=== PATIENT | male | born 1935 | race Caucasian/White ===

== ENCOUNTER 2020-12-27 12:13 | Inpatient (IN) | payer OTHER ==
[2020-12-27 12:43] LABS: Absolute Lymphocytes (CBC) 3.9 K/uL (0.7-4.9); Basophils % 1.4 % (0-1.3); Hematocrit 42.8 % (39.6-49.0); Lymphocytes % 42.6 % (15.3-44.8); MPV 10.6 fL (7.6-11.3); RBC Red Blood Cell Count 4.46 M/uL (4.33-5.43)
[2020-12-27 12:47] LABS: Protime INR 1.1
[2020-12-27 12:50] LABS: Potassium 4.8 mmol/L (3.5-5.1)
--- NOTE | 2020-12-27 13:01 | RAD REPORT ---
EXAM DESCRIPTION: CT - Ct Stroke Brain Wo Cont - 12/27/2020 12:43 pm CLINICAL HISTORY: APHASIA Headache, drowsiness, CVA symptomology COMPARISON: No comparisons TECHNIQUE: All CT scans are performed using dose optimization technique as appropriate and may inclu de automated exposure control or mA/KV adjustment according to patient size. FINDINGS: No intracranial hemorrhage, hydrocephalus or extra-axial fluid collection.Mild generalized brain atrophy is present with mild periventricular and deep white matter chronic microvascular ische aditi changes.No areas of brain edema or evidence of midline shift. The paranasal sinuses and mastoids are clear. The calvarium is intact. IMPRESSION: No acute intracranial abnormality. The findings were discussed with Dr Perez in the ER on 12/27/2020 at 12:15 p.m. by telephone.
--- NOTE | 2020-12-27 13:25 | RAD REPORT ---
EXAM DESCRIPTION: RAD - Chest Single View - 12/27/2020 1:11 pm CLINICAL HISTORY: code stroke Chest pain. COMPARISON: No comparisons FINDINGS: Portable technique limits examination quality. Mild interstitial pulmonary edema seen. The heart is moderately enlarged in size. Sternotomy wires pr esent. IMPRESSION: Mild CHF.
--- NOTE | 2020-12-27 14:43 | EDPHYS ---
Physician Documentation [facility] Name: Timo Galvin Age: 85 yrs Sex: Male : 1935 Arrival Date: 12/27/2020 Time: 12:14 Bed 4 Private MD: ED Physician Rell Perez HPI: 12/27 14:30 This 85 yrs old Male presents to ER via EMS with complaints of S/S of tw4 Possible Stroke. 15:24 The patient presents with decreased mental status, decreased responsiveness. Onset: The tw4 symptoms/episode began/occurred just prior to arrival, today. Possible causes: unknown. Associated signs and symptoms: Pertinent positives: chest pain, Pertinent negatives: abdominal pain, agitation, ataxia, blurred vision, confusion, diaphoresis, diarrhea, dizziness, headache, lightheadedness. The patient has not experienced similar symptoms in the past. Historical: - Allergies: 12:44 "Mycin" drugs; ph - PMHx: 12:21 Hypertension; Myocardial infarction; ph - Immunization history:: Adult Immunizations unknown. - Social history:: Smoking status: Patient denies any tobacco usage or history of. ROS: 15:24 Constitutional: Negative for fever, chills, and weight loss, Eyes: Negative for injury, tw4 pain, redness, and discharge, Respiratory: Negative for shortness of breath, cough, wheezing, and pleuritic chest pain, Abdomen/GI: Negative for abdominal pain, nausea, vomiting, diarrhea, and constipation, Back: Negative for injury and pain, MS/Extremity: Negative for injury and deformity, Skin: Negative for injury, rash, and discoloration. 15:24 Cardiovascular: Positive for chest pain, Negative for edema, orthopnea, palpitations, paroxysmal nocturnal dyspnea. 15:24 Neuro: Positive for altered mental status, loss of consciousness, Negative for dizziness, gait disturbance, headache, hearing loss. Exam: 15:24 Constitutional: This is a well developed, well nourished patient who is awake, alert, tw4 and in no acute distress. Head/Face: Normocephalic, atraumatic. Chest/axilla: Normal chest wall appearance and motion. Nontender with no deformity. No lesions are appreciated. Cardiovascular: Regular rate and rhythm with a normal S1 and S2. No gallops, murmurs, or rubs. Normal PMI, no JVD. No pulse deficits. Respiratory: Lungs have equal breath sounds bilaterally, clear to auscultation and percussion. No rales, rhonchi or wheezes noted. No increased work of breathing, no retractions or nasal flaring. Abdomen/GI: Soft, non-tender, with normal bowel sounds. No distension or tympany. No guarding or rebound. No evidence of tenderness throughout. Back: No spinal tenderness. No costovertebral tenderness. Full range of motion. 15:24 Neuro: Orientation: unable to test, the patient is post-ictal, Mentation: able to follow commands, slow to respond, confused. Vital Signs: 12:00 BP 136 / 69; Pulse 71; Resp 18; Temp 97.4; Pulse Ox 98% on R/A; Pain 0/10; ph 13:29 BP 144 / 79; Pulse 72; Resp 18; Pulse Ox 98% on R/A; ph 15:16 BP 147 / 73; Pulse 68; Resp 18; Pulse Ox 98% on R/A; ph 16:00 BP 114 / 66; Pulse 66; Resp 16; Pulse Ox 96% on R/A; ph 17:00 BP 150 / 78; Pulse 68; Resp 18; Pulse Ox 97% on R/A; ph 18:00 BP 123 / 64; Pulse 71; Resp 18; Pulse Ox 97% on R/A; ph 19:30 BP 111 / 63; Pulse 77; Resp 18; Pulse Ox 96% on R/A; NIH Stroke Scale Scores: 12:00 NIHSS Score: 4 ph 12:23 NIHSS Score: 0 ph MDM: 12:16 Patient medically screened. tw4 15:34 Differential Diagnosis: CVA, hypoglycemia, intracranial bleed, overdose, TIA, UTI. Data tw4 reviewed: vital signs, nurses notes. Data reviewed: radiologic studies, CT scan. Data interpreted: Pulse oximetry: Interpretation: normal. Counseling: I had a detailed discussion with the patient and/or guardian regarding: the historical points, exam findings, and any diagnostic results supporting the discharge/admit diagnosis. 12/27 12:32 Order name: Glucose, Ancillary Testing; Complete Time: 14:27 EDMS 12/27 14:27 Interpretation: Within normal limits: GLUC,ANCIL 86. tw4 12/27 12:37 Order name: Basic Metabolic Panel ph 12/27 12:37 Order name: CBC with Diff ph 12/27 12:37 Order name: Protime (+inr) ph 12/27 12:37 Order name: Ptt, Activated ph 12/27 12:37 Order name: Basic Metabolic Panel; Complete Time: 14:27 EDMS 12/27 14:27 Interpretation: Normal except: CL 109; GFR 69. 4 12/27 12:37 Order name: CBC with Automated Diff; Complete Time: 14:27 EDMS 12/27 14:27 Interpretation: Within normal limits. 4 12/27 12:37 Order name: Protime (+INR); Complete Time: 14:27 EDMS 12/27 14:27 Interpretation: PT 12.7. 4 12/27 12:37 Order name: PTT, Activated Partial Thromb; Complete Time: 14:27 EDMS 12/27 15:16 Order name: Urine Dipstick--Ancillary (enter results) or 12/27 15:17 Order name: Urine Dipstick-Ancillary EDKY 12/27 15:59 Order name: Troponin (emerg Dept Use Only); Complete Time: 18:12 [facility] 12/27 16:45 Order name: SARS-COV-2 RT PCR EDKY 12/27 12:37 Order name: CT Stroke Brain w/o Contrast; Complete Time: 14:27 ph 12/27 12:37 Order name: Stroke CXR 1 View; Complete Time: 14:27 ph 12/27 12:37 Order name: EKG; Complete Time: 12:37 ph 12/27 12:37 Order name: Accucheck; Complete Time: 12:37 ph 12/27 12:37 Order name: Cardiac monitoring; Complete Time: 12:37 ph 12/27 12:37 Order name: EKG - Nurse/Tech; Complete Time: 12:38 ph 12/27 12:37 Order name: IV Saline Lock; Complete Time: 12:38 ph 12/27 12:37 Order name: Labs collected and sent; Complete Time: 12:38 ph 12/27 12:37 Order name: NPO; Complete Time: 12:38 ph 12/27 12:37 Order name: O2 Per Protocol; Complete Time: 12:38 ph 12/27 12:37 Order name: O2 Sat Monitoring; Complete Time: 12:38 ph 12/27 12:37 Order name: Stroke Swallow Screen; Complete Time: 13:57 ph 12/27 15:59 Order name: CT Aorta for Dissection tw4 12/27 17:17 Order name: CT; Complete Time: 18:12 EDMS EC:24 Rate is 73 beats/min. Rhythm is regular. QRS Thayne is Normal. CT interval is normal. QRS tw4 interval is normal. QT interval is normal. No Q waves. T waves are Inverted in leads I, III, V1, V2, V3, V4. No ST changes noted. Clinical impression: RBBB. Interpreted by me. Reviewed by me. Administered Medications: No medications were administered Point of Care Testing: Blood Glucose: 12:23 Blood Glucose: 86 mg/dL; ph Ranges: Critical Glucose Levels:Adult <50 mg/dl or >400 mg/dl <40 mg/dl or >180 mg/dl Disposition: 12/27/20 14:42 Hospitalization ordered by Adama Erazo for Inpatient Admission. Preliminary diagnosis are Altered mental status, unspecified, Angina pectoris, unspecified, Epileptic seizures related to external causes. - Bed requested for Telemetry/MedSurg (Inpatient). - Status is Inpatient Admission. wh - Condition is Stable. - Problem is new. - Symptoms have improved. NIH Stroke Scale - NIH Stroke Score Date: 12/27/2020 Time: 12:00 Total Score = 4 1a. Level of Consciousness (LOC) - 1(Not Alert) 1b. Level of Consciousness (LOC) (Year \\T\\ Age) - 1(One) 1c. LOC Commands (Open \\T\\ Closes Eyes/Human Resources Hr Representative) - 0(Both) 2. Best Gaze (Lateral Gaze Paresis) - 0(Normal) 3. Visual Field Loss - 0(No visual loss) 4. Facial Palsy - 0(Normal) 5a. Left Arm: Motor (10-second hold) - 0(No drift) 5b. Right Arm: Motor (10-second hold) - 0(No drift) 6a. Left Leg: Motor (5-second hold - always test supine) - 0(No drift) 6b. Right Leg: Motor (5-second hold - always test supine) - 0(No drift) 7. Limb Ataxia (finger/nose \\T\\ heel/lara - test with eyes open) - 0(Absent) 8. Sensory Loss (pinprick arms/legs/face) - 0(Normal) 9. Best Language: Aphasia (description/naming/reading) - 1(Mild to moderate aphasia) 10. Dysarthria (speech clarity - read or repeat words) - 1(Mild to Moderate) 11. Extinction and Inattention (visual/tactile/auditory/spatial/personal) - 0(No abnormality) Initials: NIH Stroke Scale - NIH Stroke Score Date: 12/27/2020 Time: 12:23 Total Score = 0 1a. Level of Consciousness (LOC) - 0(Alert) 1b. Level of Consciousness (LOC) (Year \\T\\ Age) - 0(Both) 1c. LOC Commands (Open \\T\\ Closes Eyes/Human Resources Hr Representative) - 0(Both) 2. Best Gaze (Lateral Gaze Paresis) - 0(Normal) 3. Visual Field Loss - 0(No visual loss) 4. Facial Palsy - 0(Normal) 5a. Left Arm: Motor (10-second hold) - 0(No drift) 5b. Right Arm: Motor (10-second hold) - 0(No drift) 6a. Left Leg: Motor (5-second hold - always test supine) - 0(No drift) 6b. Right Leg: Motor (5-second hold - always test supine) - 0(No drift) 7. Limb Ataxia (finger/nose \\T\\ heel/lara - test with eyes open) - 0(Absent) 8. Sensory Loss (pinprick arms/legs/face) - 0(Normal) 9. Best Language: Aphasia (description/naming/reading) - 0(No aphasia) 10. Dysarthria (speech clarity - read or repeat words) - 0(Normal) 11. Extinction and Inattention (visual/tactile/auditory/spatial/personal) - 0(No abnormality) Initials: Signatures: Dispatcher [employer] EDMS Mary Camargo RN RN Tricia Reynoso RN RN Santosh Zhu, AUGUSTUS COFFMAN Rell Perez MD MD tw4 Corrections: (The following items were deleted from the chart) 15:48 15:18 CORONAVIRUS+MR.LAB.BRZ ordered. EDKY EDMS 19:19 14:42 Hospitalization Ordered by Adama Erazo for Inpatient Admission. Preliminary diagnosis is Altered mental status, unspecified; Angina pectoris, unspecified; Epileptic seizures related to external causes. Bed requested for Telemetry/MedSurg (Inpatient). Status is Inpatient Admission. Condition is Stable. Problem is new. Symptoms have improved. tw4 19:58 19:19 12/27/2020 14:42 Hospitalization Ordered by Adama Erazo for Inpatient Admission. Preliminary diagnosis is Altered mental status, unspecified; Angina pectoris, unspecified; Epileptic seizures related to external causes. Bed requested for Telemetry/MedSurg (Inpatient). Status is Inpatient Admission. Condition is Stable. Problem is new. Symptoms have improved. dw
--- NOTE | 2020-12-27 14:43 | ER ---
Nurse's Notes [facility] Name: Timo Galvin Age: 85 yrs Sex: Male : 1935 Arrival Date: 12/27/2020 Time: 12:14 Bed 4 Private MD: Diagnosis: Altered mental status, unspecified;Angina pectoris, unspecified;Epileptic seizures related to external causes Presentation: 12/27 12:00 Chief complaint: EMS states: Pt was found unresponsive by after doing yard work, ph was lethargic but responsive when EMS arrived, slow to answer questions, hx of [place] x 2, 12 lead showed R BBB, BP on L arm 120/84, R arm 152/98, BGL 119, nitro x 1 administered by , Last seen normal approx 1115. Coronavirus screen: Client denies travel out of the [place] in the last 14 days. At this time, the client does not indicate any symptoms associated with coronavirus-19. Ebola Screen: No symptoms or risks identified at this time. 12:00 Method Of Arrival: EMS: [facility] ph 12:02 An acute neurological deficit is present. The patients blood glucose was checked before ph arriving to the hospital and was found to be normal. Initial Sepsis Screen: Does the patient meet any 2 criteria? No. Patient's initial sepsis screen is negative. Does the patient have a suspected source of infection? No. Patient's initial sepsis screen is negative. Risk Assessment: Do you want to hurt yourself or someone else? Patient reports no desire to harm self or others. Onset of symptoms was December 27, 2020. 12:02 Acuity: ANSON 2 ph Triage Assessment: 19:15 The onset of the patients symptoms was. General: Behavior is calm, cooperative, wh appropriate for age. 19:15 Neuro: Reports a syncopal episode. wh Stroke Activation: Symptom onset < 3 hours Physician: Stroke Attending; Name: ; Notified At: ; Arrived At: Physician: Chief Stroke Resident; Name: ; Notified At: ; Arrived At: Physician: Stroke Resident; Name: ; Notified At: ; Arrived At: Physician: ED Attending; Name: ; Notified At: ; Arrived At: Physician: ED Resident; Name: ; Notified At: ; Arrived At: Historical: - Allergies: 12:44 "Mycin" drugs; ph - PMHx: 12:21 Hypertension; Myocardial infarction; ph - Immunization history:: Adult Immunizations unknown. - Social history:: Smoking status: Patient denies any tobacco usage or history of. Screenin:25 Abuse screen: Denies threats or abuse. Denies injuries from another. Nutritional ph screening: No deficits noted. Tuberculosis screening: No symptoms or risk factors identified. Fall Risk Fall in past 12 months (25 points). No secondary diagnosis (0 pts). IV access (20 points). Ambulatory Aid- None/Bed Rest/Nurse Assist (0 pts). Gait- Normal/Bed Rest/Wheelchair (0 pts) Mental Status- Oriented to own ability (0 pts). Total Krishnamurthy Fall Scale indicates Low Risk Score (25-44 pts). Fall prevention measures have been instituted. Side Rails Up X 2 Placed close to Nursing Station Frequent Obs/Assesments occuring As available Patient and Family Educated on Fall Prevention Program and strategies. Assessment: 12:00 Reassessment: Dr Perez at bedside to assess pt. ph 12:02 Reassessment: Code stroke called overhead. ph 12:04 Reassessment: Pt taken to CT, accompanied by RN. ph 12:23 Reassessment: Patient appears in no apparent distress at this time. Patient and/or ph family updated on plan of care and expected duration. Pain level reassessed. Pt more responsive, able to answer all questions appropriately. 12:23 VAN Scoring: Arm Drift: Patients demonstrates NO arm weakness. Patient is VAN Negative. ph T-PA (Activase) Screening: Contraindications: Rapidly improving condition or minor deficit: Yes. General: Appears in no apparent distress. comfortable, Behavior is calm, cooperative, appropriate for age. Pain: Denies pain. Neuro: Level of Consciousness is awake, alert, obeys commands, Oriented to person, place, time, Sql Data Architect are equal bilaterally Moves all extremities. Speech is normal, Facial symmetry appears normal, Facial symmetry: tongue is midline, Pupils are PERRLA, Intact. Cardiovascular: Denies chest pain, shortness of breath, Capillary refill < 3 seconds in bilateral fingers Patient's skin is warm and dry. Respiratory: Airway is patent Respiratory effort is even, unlabored, Respiratory pattern is regular, symmetrical, Denies shortness of breath. GI: No signs and/or symptoms were reported involving the gastrointestinal system. Derm: Skin is intact, Skin is pink, warm \\T\\ dry. Musculoskeletal: Circulation, motion, and sensation intact. Range of motion: intact in all extremities. 13:30 Patient has been NPO before screening. The patient is alert, and able to follow ph commands. The patient does not exhibit slurred or garbled speech. The patient is not exhibiting difficulty speaking. The patient does not exhibit difficulty understanding words. The patient is able to swallow own secretions with no drooling or need for suction. Patient tolerated one teaspoon of water. No drooling, immediate coughing, gurgling, or clearing of the throat was noted. The patient tolerated 90mL of water. No drooling, immediate coughing, gurgling, or clearing of the throat was noted. The patient passed the bedside swallow screening. Oral medications may be given as ordered. Contact Physician for further diet orders. Provider notified of bedside swallow screening results: Rell Perez MD. 15:07 Reassessment: Patient appears in no apparent distress at this time. Patient and/or ph family updated on plan of care and expected duration. Pain level reassessed. Patient is alert, oriented x 3, equal unlabored respirations, skin warm/dry/pink. Dr Erazo at bedside to speak w/ pt. 16:00 Reassessment: Patient appears in no apparent distress at this time. Patient and/or ph family updated on plan of care and expected duration. Pain level reassessed. Patient is alert, oriented x 3, equal unlabored respirations, skin warm/dry/pink. 17:00 Reassessment: Patient appears in no apparent distress at this time. Patient and/or ph family updated on plan of care and expected duration. Pain level reassessed. Patient is alert, oriented x 3, equal unlabored respirations, skin warm/dry/pink. Patient denies pain at this time. 18:00 Reassessment: Patient appears in no apparent distress at this time. Patient and/or ph family updated on plan of care and expected duration. Pain level reassessed. Patient is alert, oriented x 3, equal unlabored respirations, skin warm/dry/pink. Pt eating sandwich and fruit tolerating well, at bedside. 19:15 Reassessment: Patient appears in no apparent distress at this time. Patient and/or wh family updated on plan of care and expected duration. Pain level reassessed. Patient is alert, oriented x 3, equal unlabored respirations, skin warm/dry/pink. Vital Signs: 12:00 BP 136 / 69; Pulse 71; Resp 18; Temp 97.4; Pulse Ox 98% on R/A; Pain 0/10; ph 13:29 BP 144 / 79; Pulse 72; Resp 18; Pulse Ox 98% on R/A; ph 15:16 BP 147 / 73; Pulse 68; Resp 18; Pulse Ox 98% on R/A; ph 16:00 BP 114 / 66; Pulse 66; Resp 16; Pulse Ox 96% on R/A; ph 17:00 BP 150 / 78; Pulse 68; Resp 18; Pulse Ox 97% on R/A; ph 18:00 BP 123 / 64; Pulse 71; Resp 18; Pulse Ox 97% on R/A; ph 19:30 BP 111 / 63; Pulse 77; Resp 18; Pulse Ox 96% on R/A; NIH Stroke Scale Scores: 12:00 NIHSS Score: 4 ph 12:23 NIHSS Score: 0 ph ED Course: 12:14 Patient arrived in ED. ph 12:16 Rell Perez MD is Attending Physician. tw4 12:21 Triage completed. ph 12:22 Arm band placed on Patient placed in an exam room, on a stretcher, on quality assurance monitor chassis, ph on pulse oximetry. 12:29 Patient has correct armband on for positive identification. Placed in gown. Bed in low ph position. Call light in reach. Side rails up X2. monitor technician on. Pulse ox on. NIBP on. 12:43 Tricia Reynoso, AUGUSTUS is Primary Nurse. ph 12:43 CT Stroke Brain w/o Contrast In Process Unspecified. EDMS 13:11 Stroke CXR 1 View In Process Unspecified. EDMS 14:41 Adama Erazo is Hospitalizing Provider. tw4 15:17 No provider procedures requiring assistance completed. Patient admitted, IV remains in ph place. Administered Medications: No medications were administered Point of Care Testing: Blood Glucose: 12:23 Blood Glucose: 86 mg/dL; ph Ranges: Outcome: 14:42 Decision to Hospitalize by Provider. tw4 19:47 Admitted to [facility] accompanied by [facility], via stretcher, room 424, with chart, Report called to Vince Thompson RN 19:47 Condition: stable 19:47 Instructed on the need for admit. 19:58 Patient left the ED. NIH Stroke Scale - NIH Stroke Score Date: 12/27/2020 Time: 12:00 Total Score = 4 1a. Level of Consciousness (LOC) - 1(Not Alert) 1b. Level of Consciousness (LOC) (Year \\T\\ Age) - 1(One) 1c. LOC Commands (Open \\T\\ Closes Eyes/Retail Salesperson) - 0(Both) 2. Best Gaze (Lateral Gaze Paresis) - 0(Normal) 3. Visual Field Loss - 0(No visual loss) 4. Facial Palsy - 0(Normal) 5a. Left Arm: Motor (10-second hold) - 0(No drift) 5b. Right Arm: Motor (10-second hold) - 0(No drift) 6a. Left Leg: Motor (5-second hold - always test supine) - 0(No drift) 6b. Right Leg: Motor (5-second hold - always test supine) - 0(No drift) 7. Limb Ataxia (finger/nose \\T\\ heel/lraa - test with eyes open) - 0(Absent) 8. Sensory Loss (pinprick arms/legs/face) - 0(Normal) 9. Best Language: Aphasia (description/naming/reading) - 1(Mild to moderate aphasia) 10. Dysarthria (speech clarity - read or repeat words) - 1(Mild to Moderate) 11. Extinction and Inattention (visual/tactile/auditory/spatial/personal) - 0(No abnormality) Initials: NIH Stroke Scale - NIH Stroke Score Date: 12/27/2020 Time: 12:23 Total Score = 0 1a. Level of Consciousness (LOC) - 0(Alert) 1b. Level of Consciousness (LOC) (Year \\T\\ Age) - 0(Both) 1c. LOC Commands (Open \\T\\ Closes Eyes/Retail Salesperson) - 0(Both) 2. Best Gaze (Lateral Gaze Paresis) - 0(Normal) 3. Visual Field Loss - 0(No visual loss) 4. Facial Palsy - 0(Normal) 5a. Left Arm: Motor (10-second hold) - 0(No drift) 5b. Right Arm: Motor (10-second hold) - 0(No drift) 6a. Left Leg: Motor (5-second hold - always test supine) - 0(No drift) 6b. Right Leg: Motor (5-second hold - always test supine) - 0(No drift) 7. Limb Ataxia (finger/nose \\T\\ heel/lara - test with eyes open) - 0(Absent) 8. Sensory Loss (pinprick arms/legs/face) - 0(Normal) 9. Best Language: Aphasia (description/naming/reading) - 0(No aphasia) 10. Dysarthria (speech clarity - read or repeat words) - 0(Normal) 11. Extinction and Inattention (visual/tactile/auditory/spatial/personal) - 0(No abnormality) Initials: ph Signatures: Dispatcher [employer] Tricia Santiago RN RN ph Habalo, Winsy, RN RN wh Wadley, Terrence, MD MD tw4
--- NOTE | 2020-12-27 15:59 | P.HP ---
Certification for Inpatient Patient admitted to: Observation With expected LOS: <2 Midnights Practitioner: I am a practitioner with admitting privileges, knowledge of patient current condition, hospital course, and medical plan of care. Services: Services provided to patient in accordance with Admission requirements found in Title 42 Section 412.3 of the Code of Federal Regulations Patient History Date of Service: 12/27/20 Reason for admission: Syncope and collapse History of Present Illness: 85-year-old gentleman with a history of [place], status post cardiac stent and triple bypass surgery was brought to the emergency department because he passed out while sitting in a couch at home. The syncopal episode was preceded by chest pain. Patient describes a tremendous crushing anterior chest pain, located in the mid chest, no back pain, denied palpitation. He was lethargic on arrival to the ED and gained full consciousness later. Patient had no recollection of how he ended up in the ED except the chest pain preceding the syncopal episode. Workup in the ED is unremarkable. EKG demonstrated sinus rhythm and RBBB. Chest x-ray unremarkable, head CT negative. Initial troponin is pending. Patient is hospitalized for further workup. - Past Medical/Surgical History -: AL -: Hypertension -: CABG -: Cardiac stent - Family History Mother -: Cancer - Social History Smoking Status: Former smoker Alcohol use: No CD- Drugs: No Place of Residence: Home Review of Systems Other: Except as documented, all other systems reviewed and negative. Physical Examination - Physical Exam General: Alert, In no apparent distress, Oriented x3 HEENT: Atraumatic, PERRLA, Mucous membr. moist/pink, Sclerae nonicteric Neck: Supple, 2+ carotid pulse no bruit, JVD not distended, No Thyromegaly Respiratory: Clear to auscultation bilaterally, Normal air movement Cardiovascular: No edema, Regular rate/rhythm, Normal S1 S2 Capillary refill: <2 Seconds Gastrointestinal: Normal bowel sounds, Soft and benign, Non-distended, No tenderness Musculoskeletal: No swelling, No tenderness Integumentary: No rashes, No erythema Neurological: Normal speech, Normal strength at 5/5 x4 extr, Cranial nerves 3-12 intact - Studies Laboratory Data (last 24 hrs) 12/27/20 12:21: PT 12.7 H, INR 1.10, APTT 27.1 12/27/20 12:21: WBC 9.10, Hgb 14.2, Hct 42.8, Plt Count 162 12/27/20 12:21: Sodium 142, Potassium 4.8, BUN 16, Creatinine 1.03, Glucose 97 Assessment and Plan - Problems (Diagnosis) (1) Syncope and collapse Current Visit: Yes Status: Acute (2) Coronary artery disease Current Visit: Yes Status: Acute (3) History of [place] (myocardial infarction) Current Visit: Yes Status: Acute (4) Hypertension Current Visit: Yes Status: Acute - Plan Place under observation. Trend troponin Obtain CT dissection to evaluate for aortic dissection. Cardiac monitoring for the next 24 hours. Cardiology consult Check orthostatics vitals. Obtain Echo Aspirin, statins. - Advance Directives Does patient have a Living Will: No Does patient have a Durable POA for Healthcare: No
[2020-12-27 16:31] LABS: Urine Blood NEGATIVE (NEG); Urine Glucose NEGATIVE (NEG); Urine Protein NEGATIVE (NEG)
--- NOTE | 2020-12-27 17:17 | RAD REPORT ---
EXAM DESCRIPTION: CT - Angio Aorta For Dissection - 12/27/2020 5:03 pm CLINICAL HISTORY: Chest pain radiating to the back. dissection COMPARISON: No comparisons TECHNIQUE: CT angiography of the aorta was performed with MIPs. All CT scans are performed using dose optimization technique as appropriate and may include automated exposure control or mA/KV adjustment according to patient size. FINDINGS: A left aortic arch is present with normal branching pattern of the great vessels.No acute aortic finding is seen such as aneurysm, penetrating ulcer or dissection. The celiac axis, SMA, DOMI and renal arteries are patent. No evidence of pulmonary embolism. The lungs are mildly emphysematous but clear. The liver demonstrates no focal mass or biliary dilatation.The spleen, pancreas, adrenal glands and k idneys are within normal limits for arterial phase imaging. No bowel obstruction, free fluid or abscess.Prominent sigmoid diverticulosis is present without diver ticulitis.No pathologic enlarged lymphadenopathy identified.Mild enlargement of the prostate gland. Mild lumbosacral degenerative changes. IMPRESSION: No acute aortic finding is demonstrated.
[2020-12-27] MEDS ORDERED: ONDANSETRON 4 MG/2 ML VIAL IV PRN (20:26)
[2020-12-27] MEDS ORDERED: ACETAMINOPHEN 500 MG TAB PO PRN (20:26)
[2020-12-27 20:32] VITALS: BMI 28.8
[2020-12-27] MEDS: NA CHLORIDE 0.9% 1,000 ML IV SCH (21:23)
[2020-12-27 21:37] LABS: Urine Appearance CLEAR; Urine Bilirubin NEGATIVE (NEG); Urine Blood NEGATIVE (NEG); Urine Color YELLOW; Urine Glucose NEGATIVE (NEG); Urine Protein NEGATIVE (NEG); Urine Specific Gravity 1.025 (1.005-1.030); Urine Urobilinogen 0.2 mg/dL (0.2-1.0); Urine pH 7.5 (5.0-7.0)
[2020-12-27 21:38] LABS: Urine Microscopic Reflex NO UMIC
[2020-12-28 06:32] LABS: Absolute Lymphocytes (CBC) 3.5 K/uL (0.7-4.9); Basophils % 0.6 % (0-1.3); Hematocrit 42.4 % (39.6-49.0); Lymphocytes % 44.2 % (15.3-44.8); MPV 10.4 fL (7.6-11.3); RBC Red Blood Cell Count 4.47 M/uL (4.33-5.43)
[2020-12-28 06:54] LABS: Magnesium 2.2 mg/dL (1.8-2.4); Phosphorus 3.5 mg/dL (2.5-4.9); Potassium 4.1 mmol/L (3.5-5.1); Thyroid Stimulating Hormone 1.97 uIU/mL (0.360-3.740)
[2020-12-28] MEDS ORDERED: ENOXAPARIN 40 MG/0.4 ML SQ SCH (09:00)
--- NOTE | 2020-12-28 10:23 | EKG ---
Test Date: 2020-12-27 Test Time: 12:12:57 Junior Programmer Analyst: MEASUREMENT RESULTS: Intervals: Rate: 73 WV: 186 QRSD: 144 QT: 412 QTc: 453 [facility]: P: 56 WV: 186 QRS: 40 T: 1 INTERPRETIVE STATEMENTS: Normal sinus rhythm Right bundle branch block Abnormal ECG No previous ECG available for comparison Electronically Signed On 12-28-20 10:22:03 CDT by Patricio Robles
--- NOTE | 2020-12-28 13:46 | P.PN ---
Subjective Date of Service: 12/28/20 Chief Complaint: Syncope and collapse Patient currently has no complain. Telemetry shows PVCs. No other significant arrhythmia. Physical Examination - Vital Signs Temperature: 98.2 F Blood Pressure: 127/64 Pulse: 79 Respirations: 16 Pulse Ox (%): 96 - Physical Exam General: Alert, In no apparent distress HEENT: Mucous membr. moist/pink Neck: JVD not distended Respiratory: Clear to auscultation bilaterally, Normal air movement Cardiovascular: No edema, Normal S1 S2, Irregular heart rate/rhythm Gastrointestinal: Normal bowel sounds, Soft and benign, Non-distended, No tenderness Musculoskeletal: No swelling, No tenderness Integumentary: No rashes, No erythema Neurological: Normal speech, Normal strength at 5/5 x4 extr, Cranial nerves 3-12 intact - Studies Laboratory Data (last 24 hrs) 12/27/20 12:21: PT 12.7 H, INR 1.10, APTT 27.1 12/27/20 12:21: WBC 9.10, Hgb 14.2, Hct 42.8, Plt Count 162 12/27/20 12:21: Sodium 142, Potassium 4.8, BUN 16, Creatinine 1.03, Glucose 97 Assessment And Plan - Current Problems (Diagnosis) (1) Syncope and collapse Current Visit: Yes Status: Acute (2) Coronary artery disease Current Visit: Yes Status: Acute (3) History of [place] (myocardial infarction) Current Visit: Yes Status: Acute (4) Hypertension Current Visit: Yes Status: Acute - Plan Troponin mildly elevated but trended flat CT dissection: Unremarkable. Cardiology input appreciated. Dr. Robles plans for cardiac catheterization. Patient and family yet to decide on cardiac catheterization with Dr. Robles Awaiting Echo Continue Aspirin, metoprolol and lipitor.
[2020-12-28] MEDS ORDERED: ISOSORBIDE MONONITRATE 120 MG PO SCH (13:51)
[2020-12-28] MEDS: METOPROLOL TAR 50 MG TAB PO SCH ×2 (14:30→20:44)
[2020-12-28] MEDS: ATORVASTATIN 40 MG TAB PO SCH (17:10)
[2020-12-28] MEDS: NA CHLORIDE 0.9% 1,000 ML IV SCH (17:10)
[2020-12-29 04:36] LABS: Magnesium 2.2 mg/dL (1.8-2.4); Phosphorus 3.1 mg/dL (2.5-4.9); Potassium 4.1 mmol/L (3.5-5.1)
[2020-12-29] MEDS: ATORVASTATIN 40 MG TAB PO SCH (08:44)
[2020-12-29] MEDS: METOPROLOL TAR 50 MG TAB PO SCH ×3 (08:44→20:04)
[2020-12-29] MEDS ORDERED: ISOSORBIDE MONO SR 60 MG TAB PO SCH (09:00)
[2020-12-29] MEDS ORDERED: ASPIRIN EC 81 MG TAB PO SCH (09:00)
[2020-12-29] MEDS ORDERED: HEPA 1000U/500MLS 2,000 UNIT/1,000 ML BAG IV ONE (09:17)
--- NOTE | 2020-12-29 12:02 | CON ---
Date of Consultation: 12/28/2020 Reason For Consultation: Non-ST elevation myocardial infarction. History Of Present Illness: Mr. Howard is an 85-year-old white male. He has a history of hypertensi on, coronary artery disease status post CABG approximately 10 years ago in [place], [place]. He also has a history of hyperlipidemia. He normally sees Dr. Marsh. He is a patient of . Dr. Hilda Waters in [place], family physician, is his son-in-law. Apparently, he has an episode after work ing in the yard, mowing lawns and taking care in the yards, when he back home and sat down on the enrrique ir, his tried to arouse him and all he remembers was he has had some chest pain, substernal acro ss. After which, he does not remember much, but he had mental status change, but no evidence of seiz ure activity. When he came to the emergency room, he was noted to have a troponin of 0.19. Chest x- ray showed mild congestive heart failure. CT of his head and CT of the chest were negative. Past Medical History: As stated above. Allergies: TO CLINDAMYCIN. Medications: At home include aspirin, Lipitor, ramipril and metoprolol as well as Isordil. Review of Systems: Negative. Social History: Negative. Family History: Noncontributory. Physical Examination: Vital Signs: Stable. Afebrile. HEENT: Negative. Neck: Supple with no bruit. Chest: Clear. Cardiac: Revealed a regular rhythm and rate with an aortic sclerosis murmur. No gallops or rubs. Abdomen: Benign. Extremities: Revealed no clubbing, cyanosis, or edema. Diagnostic Data: As stated earlier. EKG was nonspecific. Impression And Plan: Non-ST elevation myocardial infarction, probably syncope. Certainly, it could be related to coronary artery disease, worsening and may be an arrhythmia. He needs to have a heart catheterization. They understand the risks and the benefits of the procedure and they agreed to proc eed. Discussed with him and his and Dr. Waters. We will plan for catheterization on 12/29/2020 . I think regardless of what the catheterization shows and event monitor in the long run and reasona ble to rule out arrhythmia, he will follow up with Dr. Marsh in that regard. His other problems includ ing hypertension and dyslipidemia are stable at this point. ELAINA/BRI Voice ID: [id number] Report ID: [id number]
[2020-12-29] MEDS: NA CHLORIDE 0.9% 1,000 ML IV SCH (12:26)
[2020-12-29] MEDS ORDERED: NA CHLORIDE 0.9% 500 ML ONE ×2 (12:34→15:15)
[2020-12-29] MEDS ORDERED: HEPA 1000U/500MLS 1,000 UNIT/500 ML BAG IV ONE (14:19)
[2020-12-29] MEDS ORDERED: HEPARIN 5000 UNIT/ML 1 ML VIAL ONE (14:20)
[2020-12-29] MEDS ORDERED: VERAPAMIL HCL 10 MG/4 ML VIAL IV ONE (14:20)
[2020-12-29] MEDS ORDERED: ATROPINE SULF 1 MG/10 ML SYR IV ONE (14:20)
[2020-12-29] MEDS ORDERED: TICAGRELOR 90 MG TABLET PO ONE (14:20)
[2020-12-29] MEDS ORDERED: MIDAZOLAM HCL 2 MG/2 ML INJ ONE (14:21)
[2020-12-29] MEDS ORDERED: FENTANYL CITR 100 MCG/2 ML ONE (14:22)
[2020-12-29] MEDS ORDERED: ASPIRIN 325 MG TAB ONE (15:03)
--- NOTE | 2020-12-29 15:15 | P.PN ---
Subjective Date of Service: 12/29/20 Chief Complaint: Syncope and collapse Patient currently has no complain. Patient planned for cardiac catheterization today Physical Examination - Vital Signs Temperature: 97.1 F Blood Pressure: 100/50 Pulse: 66 Respirations: 18 Pulse Ox (%): 95 - Physical Exam General: Alert, In no apparent distress Neck: Supple, JVD not distended Respiratory: Clear to auscultation bilaterally, Normal air movement Cardiovascular: No edema, Normal S1 S2, Irregular heart rate/rhythm Gastrointestinal: Soft and benign, Non-distended, No tenderness Musculoskeletal: No swelling Integumentary: No rashes Neurological: Normal speech, Normal strength at 5/5 x4 extr Assessment And Plan - Current Problems (Diagnosis) (1) Syncope and collapse Current Visit: Yes Status: Acute (2) Coronary artery disease Current Visit: Yes Status: Acute (3) History of [place] (myocardial infarction) Current Visit: Yes Status: Acute (4) Hypertension Current Visit: Yes Status: Acute (5) Elevated troponin Current Visit: Yes Status: Acute - Plan Troponin mildly elevated but trended flat. CT dissection: Unremarkable. Cardiology input appreciated. Patient plan for cardiac catheterization today. Continue Aspirin, metoprolol and lipitor.
--- NOTE | 2020-12-29 18:22 | P.DS ---
Admission Date: 12/28/20 Discharge Date: 12/29/20 Disposition: TRANSFER TO [facility] Discharge Condition: FAIR Reason for Admission: Syncope and collapse - Problems (1) Syncope and collapse Current Visit: Yes Status: Acute (2) Coronary artery disease Current Visit: Yes Status: Acute (3) History of [place] (myocardial infarction) Current Visit: Yes Status: Acute (4) Hypertension Current Visit: Yes Status: Acute (5) Elevated troponin Current Visit: Yes Status: Acute Brief History of Present Illness: 85-year-old gentleman with a history of [place], status post cardiac stent and triple bypass surgery was brought to the emergency department because he passed out while sitting in a couch at home. The syncopal episode was preceded by chest pain. Patient describes a tremendous crushing anterior chest pain, located in the mid chest, no back pain, denied palpitation. He was lethargic on arrival to the ED and gained full consciousness later. Patient had no recollection of how he ended up in the ED except the chest pain preceding the syncopal episode. Workup in the ED is unremarkable. EKG demonstrated sinus rhythm and RBBB. Chest x-ray unremarkable, head CT negative. Initial troponin is pending. Patient is hospitalized for further workup. Hospital Course: Patient admitted to telemetry. Troponin was mildly elevated but trended flat. Telemetry showed frequent PVCs. No other significant arrhythmia. Patient seen and evaluated by cardiology, cardiac catheterization was performed and cardiology recommend transfer to [facility] for PCI. Patient is clinically stable for transfer. Vital Signs/Physical Exam: Temp Pulse Resp BP Pulse Ox 97.0 F 62 18 118/54 L 97 12/29/20 17:28 12/29/20 17:28 12/29/20 17:28 12/29/20 17:28 12/29/20 17:28 General: Alert, In no apparent distress Neck: JVD not distended Respiratory: Clear to auscultation bilaterally, Normal air movement Cardiovascular: No edema, Normal S1 S2, Irregular heart rate/rhythm Gastrointestinal: Soft and benign, Non-distended Musculoskeletal: No swelling, No tenderness Integumentary: No rashes Neurological: Normal strength at 5/5 x4 extr Laboratory Data at Discharge: WBC 8.00 K/uL (4.3-10.9) 12/28/20 05:38 Hgb 14.4 g/dL (13.6-17.9) 12/28/20 05:38 Hct 42.4 % (39.6-49.0) 12/28/20 05:38 Plt Count 151 K/uL (152-406) L 12/28/20 05:38 PT 12.7 SECONDS (9.5-12.5) H 12/27/20 12:21 INR 1.10 12/27/20 12:21 APTT 27.1 SECONDS (24.3-36.9) 12/27/20 12:21 Sodium 143 mmol/L (136-145) 12/29/20 03:57 Potassium 4.1 mmol/L (3.5-5.1) 12/29/20 03:57 BUN 13 mg/dL (7-18) 12/29/20 03:57 Creatinine 0.86 mg/dL (0.55-1.3) 12/29/20 03:57 Glucose 93 mg/dL (74-106) 12/29/20 03:57 Phosphorus 3.1 mg/dL (2.5-4.9) 12/29/20 03:57 Magnesium 2.2 mg/dL (1.8-2.4) 12/29/20 03:57 Troponin I 0.19 ng/mL (0.0-0.045) H 12/28/20 01:11 Triglycerides 116 mg/dL (<150) 12/28/20 05:38 Cholesterol 111 mg/dL (<200) 12/28/20 05:38 HDL Cholesterol 42 mg/dL (40-60) 12/28/20 05:38 Cholesterol/HDL Ratio 2.64 12/28/20 05:38 Home Medications: Aspirin [Aspirin EC 81 MG] 1 tab PO DAILY 12/28/20 Atorvastatin Calcium 1 tab PO DAILY 12/28/20 Isosorbide Mononitrate [Isosorbide Mononitrate ER] 1 tab PO DAILY 12/28/20 Metoprolol Tartrate [Lopressor] 50 mg PO TID 12/28/20 Ramipril 2.5 mg PO DAILY 12/28/20 Followup: Clarke Gauthier MD [Primary Care Provider] -
[2020-12-29 20:05] VITALS: BP 131/60
[2020-12-29 20:14] VITALS: TEMP 98.4
[2020-12-29 21:28] VITALS: O2SAT 95
--- NOTE | 2020-12-29 22:00 | OP ---
Date of Procedure: 12/29/2020 Surgeon: SANCHO RAE Procedure Performed: 1.Selective coronary angiogram with bypass graft study. 2.Failed attempt of PCI of proximal heavily calcified RCA. Indication: Unstable angina. Access: Right femoral artery 6-[place] closed with 6-[place] Angio-Seal. Description Of Procedure: After risks, benefits, and alternatives were explained, patient agreed to proceed and signed informed consent. We took the patient to the cardiac catheterization laboratory, prepped and draped in usual sterile fashion. Then, we accessed the right femoral artery using a micr opuncture kit and placed 6-[place] sheath and then took a 6-[place] JL4 catheter into the aort ic root and engaged left main, took standard views and then 6-[place] JR4 catheter into the aortic ever t, engaged the right coronary artery, SVG to OM, SVG to diagonal, and BLACKWE[place] to LAD and standard views were done. Intervention Details: We gave heparin to assure ACT level above 250 and then give Brilinta as well 8 0 mg, and then we took a JR4 guide into the aortic root, engaged the right coronary artery. Then, we took a short run-through wire crossing the area of stenosis, heavily calcified, tried to pass balloo ns, could not pass any balloon through it and used the GuideLiner and meme wire without any good res ults. At this point, we decided to abort the procedure and get the patient to higher level of care [facility] where atherectomy can be performed due to heavy calcification of the proximal RCA stenosis. Then removed all the catheter and wires and the sheath was removed and 6-[place] Angio-Seal was placed with good hemostasis. Findings: 1.Left main is normal. 2.LAD, proximal 80% stenosis, patent [place] to LAD distally, patent SVG graft to diagonal 1. 3.Left circumflex, 80% proximally with patent SVG to OM1. 4.RCA proximal, 90 to 99% stenosis, heavily calcified, status post PCI. 5.Patent [place] to LAD, patent SVG to OM, patent SVG to diagonal. Conclusion: Coronary artery disease as above. The only nonvascularized vessel now is the RCA. We w ill recommend PCI with atherectomy of the proximal RCA to be done at higher level of care facility. SR/MODL Voice ID: [id number] Report ID: [id number]
== END 2020-12-29 20:30 | disposition short-term general hospital (02) | DRG 282 ==
LOC: ER 12:13 → ERHOLD 15:43 → 4TH 19:47 → OBSVTOIN 12-28 16:28
PROVIDERS: ADMIT Internal Medicine; ATTEND Internal Medicine
PROC: 4A023N7 Measurement of Cardiac Sampling and Pressure, Left Heart, Percutaneous Approach (ICD-10-PCS; principal; 2020-12-29)
PROC: B2111ZZ Fluoroscopy of Multiple Coronary Arteries using Low Osmolar Contrast (ICD-10-PCS; 2020-12-29)
PROC: 02JA3ZZ Inspection of Heart, Percutaneous Approach (ICD-10-PCS; 2020-12-29)
DX: I21.4 Non-ST elevation (NSTEMI) myocardial infarction (principal); I10 Essential (primary) hypertension; I45.10 Unspecified right bundle-branch block; I25.10 Atherosclerotic heart disease of native coronary artery without angina pectoris; I49.3 Ventricular premature depolarization; E78.5 Hyperlipidemia, unspecified; I25.2 Old myocardial infarction; R55 Syncope and collapse; R77.8 Other specified abnormalities of plasma proteins; Z88.1 Allergy status to other antibiotic agents; Z79.82 Long term (current) use of aspirin; Z87.891 Personal history of nicotine dependence; Z95.5 Presence of coronary angioplasty implant and graft; Z79.899 Other long term (current) drug therapy; Z20.822 Contact with and (suspected) exposure to COVID-19
CPT/HCPCS: 36415; 70450; 71045; 71275; 74175; 80048; 80061; 81003; 82947; 83735; 84100; 84443; 84484; 85025; 85347; 85610; 85730; 93005; 93458; 94760; 99285; C1760; C1893; J1644; J1650; J2250; J3010; J7030; J7040; Q9967; U0003